=== PATIENT | female | born 1945 | race African-American/Black ===

== ENCOUNTER 2023-08-27 03:41 | Emergency (ER) | payer OTHER ==
[~2023-08-27] VITALS: Ht 160 cm; Wt 55.0 kg
[2023-08-27 03:43] VITALS: O2SAT 98
[2023-08-27] MEDS: ACETAMINOPHEN 325MG TABLET PO ONE (04:47)
[2023-08-27 06:00] VITALS: BP 155/39; PULSE 70; RESP 11; TEMP 97.8
[2023-08-27] MEDS ORDERED: IBUP-2029 MT (06:04)
[2023-08-27] MEDS: IBUPROFEN 600MG TABLET PO ONE (06:36)
== END 2023-08-27 06:30 | disposition home or self-care (01) ==
LOC: ER 03:41
DX: S93.525A Sprain of metatarsophalangeal joint of left lesser toe(s), initial encounter (principal); E11.9 Type 2 diabetes mellitus without complications; I10 Essential (primary) hypertension; W18.39XA Other fall on same level, initial encounter; Y93.89 Activity, other specified; Y92.89 Other specified places as the place of occurrence of the external cause; Y99.8 Other external cause status
CPT/HCPCS: 73630; 99283

== ENCOUNTER 2023-10-11 17:25 | Emergency (ER) | payer MEDICARE ==
[~2023-10-11] VITALS: Ht 152.4 cm; Wt 44.0 kg
[~2023-10-11 17:25] MED LIST: ATEN-42 PO; FERR325T6 PO; IBUP-2029 MT; LOSA25TA26 PO
[2023-10-11 17:30] VITALS: BP 132/42; PULSE 96; RESP 16; TEMP 99.1; O2SAT 99
[2023-10-11] MEDS: ACETAMINOPHEN 325MG TABLET PO ONE (19:03)
== END 2023-10-11 21:47 | disposition home or self-care (01) ==
LOC: ER 17:25
DX: F10.129 Alcohol abuse with intoxication, unspecified (principal); R51.9 Headache, unspecified; Z88.0 Allergy status to penicillin; Y90.9 Presence of alcohol in blood, level not specified
CPT/HCPCS: 71045; 73522; 73560; 99284